=== PATIENT | female | born 1965 | race Caucasian/White ===

== ENCOUNTER 2023-03-10 17:59 | Emergency (ER) | payer BC, SELFPAY ==
[2023-03-10] VITALS (47 sets, daily range): BP systolic 111–144; BP diastolic 54–98; PULSE 51–74; RESP 11–23; TEMP 36.2; O2SAT 93–100
--- NOTE | 2023-03-10 18:10 | NUR.NOTE ---
Nursing Note: Accessed [place] [facility] [place].
[2023-03-10 18:59] LABS: Abs Immature Grans 0.11 10^3/uL (0.0-0.06); Absolute Basophil Count 0.06 10^3/uL (0.0-0.2); Absolute Eosinophil Count 0.17 10^3/uL (0.0-0.7); Absolute Lymphocyte Count 4.35 10^3/uL (1.2-3.4); Absolute Monocyte Count 0.62 10^3/uL (0.1-0.8); Basophils % 0.5; Eosinophils % 1.3; HCT 39.5 % (36.0-46.0); Immature Grans % 0.9; Lymphocytes % 34.2; MCH 28.8 pg (27.0-33.0); MCHC 32.9 % (32.0-36.0); MCV 87 fL (80-95); MPV 10.8 fL (8.0-11.0); Monocytes % 4.9; Neutrophils % 58.2; Platelet Count 144 10^3/uL (130-400); RBC 4.52 10^6/uL (3.93-5.22); RDW 13.4 % (11.7-14.6); RDW-SD 42.8 fL; WBC 12.72 10^3/uL (4.4-10.8)
--- NOTE | 2023-03-10 19:00 | W.ED.GENAD ---
Discharge Plan Disposition Patient Disposition: Transfer-Acute Inpatient Care Specific Acute Inpt Facility: [facility] Discharge Details Clinical Impression: Vertigo Primary Care Provider: Good Sorensen ED Provider: Jose Luis Toney Home Meds and New Rx's Prescriptions: No Action No Known Home Meds atorvastatin 40 mg Tablet 40 mg PO DAILY acetaminophen 325 mg Tablet 325 mg PO Q6H PRN albuterol 90 mcg/actuation Aerosol 180 mcg INHALATION Q4H PRN lorazepam 1 mg Tablet 1 mg PO PRN PRN epinephrine [Epi E-Z Pen] 0.3 mg/0.3 mL Auto-Injector 0.3 ml IM PRN PRN (Reason: Allergic Reaction) ibuprofen 600 mg Tablet 600 mg PO Q6H fluticasone propionate [Flovent HFA] 110 mcg/actuation Hfa Aerosol Inhaler 1 puff INHALATION PRN PRN semaglutide (weight loss) 0.5 mg/0.5 mL Pen Injector 0.5 mg SUBCUT QWEEK Medical Decision Making 1899 --57-year-old female here with sudden onset, severe vertigo that is worse with movement. Patient not tolerating exam and having significant vomiting. No RIOS. No neck pain. No diplopia, dysphagia, dysarthria, paresthesia or weakness. Nursing established US guided IV access and will give IV fluid and ondansetron IV. Plan to treat with meclizine. 1942 -- Patient reassessed and still with nausea. Able to tolerate exam - patient with horizontal nystagmus, fast phase away from right. Rotary nystagmus present on vertical gaze. Skew test normal. Head impulse not well tolerated. Given persistent symtpoms and inability to tolerate complete hints exam with persistent nausea, consider central etiology. Will CT head and obtain CTA brain and neck. --CT of the head was interpreted by radiology: No acute intracranial abnormality. Mild to moderate white matter disease. Nonspecific subcortical areas of low-density and white matter are detected. These may be seen with a variety of infectious, inflammatory or vascular etiologies. These may also be seen in the setting of migraine headaches. Less likely is microvascular ischemic changes in this age group. CTA of the head was interpreted by radiology: No large vessel stenosis or occlusion. Mild to moderate nonspecific white matter disease. CTA of the neck was interpreted by radiology: No stenosis or occlusion. Patient reassessed and continues to have symptoms. Miquel maneuver was performed and patient did note some improvement with ability to open her eyes without significant vertigo. 2234 --patient reassessed and notes improvement after Miquel maneuver. I am concerned that she vomited initial dose of Antivert I will repeat dosing and plan to reassess. 2299 --patient reassessed and attempted to ambulate and having ataxic gait. Patient would benefit from MRI tonight to definitively rule out central etiology. We will give aspirin 325mg. 2314 -- I called [facility], spoke with transfer center staff, discussed ED presentation and my concerns and I requested emergent transfer ED to ED to evaluate for posterior circulation CVA. [facility] transfer center staff note unable to accommodate transfer due to capacity and will refuse to accept patient. I then immediately called [facility] transfer center to request transfer. Awaiting callback from [facility]. 2329 -- I spoke with Dr. Berry, discussed ED presentation and course, she will accept patient in transfer. Lab Data Lab results reviewed: Yes I reviewed the patient's lab results. Labs: Laboratory Tests Range/Units 03/10/23 03/10/23 03/10/23 18:48 18:48 18:48 WBC (4.4-10.8) 10^3/uL 12.72 H RBC (3.93-5.22) 10^6/uL 4.52 Hgb (11.2-15.7) g/dL 13.0 Hct (36.0-46.0) % 39.5 MCV (80-95) fL 87 MCH (27.0-33.0) pg 28.8 MCHC (32.0-36.0) % 32.9 RDW (11.7-14.6) % 13.4 Plt Count (130-400) 10^3/uL 144 MPV (8.0-11.0) fL 10.8 Immature Gran % 0.9 Neutrophils % 58.2 Lymphocytes % 34.2 Monocytes % 4.9 Eosinophils % 1.3 Basophils % 0.5 Nucleated RBC % (0.0-0.3) % 0.0 Absolute Neutrophils (1.2-6.7) 10^3/uL 7.40 H Absolute Lymphocytes (1.2-3.4) 10^3/uL 4.35 H Absolute Monocytes (0.1-0.8) 10^3/uL 0.62 Absolute Eosinophils (0.0-0.7) 10^3/uL 0.17 Absolute Basophils (0.0-0.2) 10^3/uL 0.06 PT (9.3-11.0) sec 9.4 INR (0.9-1.1) 0.9 APTT (21.5-31.9) sec 23.3 Sodium (136-145) mmol/L 139 Potassium (3.5-5.1) mmol/L 3.6 Chloride (98-107) mmol/L 100 Carbon Dioxide (21.0-32.0) mmol/L 27.3 Anion Gap (3-11) mmol/L 11.7 H BUN (7-18) mg/dL 26 H Creatinine (0.55-1.02) mg/dL 0.9 Est GFR (CKD-EPI 2020) (mL/min/1.73m2) 75.03 Glucose (74-106) mg/dL 144 H Calcium (8.5-10.1) mg/dL 8.7 Magnesium (1.8-2.4) mg/dL 1.9 Total Bilirubin (0.2-1.0) mg/dL 0.2 AST (15-37) U/L 13 L ALT (14-59) U/L 26 Alkaline Phosphatase (46-116) U/L 78 Troponin I (<or=60) ng/L < 50 Total Protein (6.4-8.2) g/dL 8.0 Albumin (3.4-5.0) g/dL 3.8 HPI General Mode of arrival: ambulatory. Date/Time Provider Initiated Documentation: 03/10/23 18:10. Limitations to Documentation: no limitations. Information obtained by: patient. HPI Narrative: 57-year-old female presents with severe dizziness. Patient notes sudden onset of severe dizziness that is worse with any movement. She states feels like the room is spinning. Symptoms started around 5:30 PM. She has associated nausea and vomiting. Prior to onset, patient was feeling normal. She denies associated chest pain, shortness of breath, abdominal pain, headache, numbness or tingling. No visual changes. Related Data Home Medications Medication Instructions Recorded Confirmed Unknown [No Known Home Meds] 03/10/23 03/10/23 acetaminophen 325 mg tablet 325 mg PO Q6H PRN 03/10/23 03/10/23 albuterol 90 mcg/actuation aerosol 180 mcg inhalation Q4H PRN 03/10/23 03/10/23 inhaler atorvastatin 40 mg tablet 40 mg PO DAILY 03/10/23 03/10/23 epinephrine 0.3 mg/0.3 mL 0.3 ml IM PRN PRN Allergic Reaction 03/10/23 03/10/23 injection, auto-injector fluticasone propionate 110 1 puff inhalation PRN PRN 03/10/23 03/10/23 mcg/actuation HFA aerosol inhaler (Flovent HFA) ibuprofen 600 mg tablet 600 mg PO Q6H 03/10/23 03/10/23 lorazepam 1 mg tablet 1 mg PO PRN PRN 03/10/23 03/10/23 semaglutide (weight loss) 0.5 0.5 mg subcut QWEEK 03/10/23 03/10/23 mg/0.5 mL subcutaneous pen injector Allergies Allergy/AdvReac Type Severity Reaction Status Date / Time Penicillins Allergy Hives Unverified 03/10/23 18:09 Sulfa (Sulfonamide Allergy Hives Unverified 03/10/23 18:09 Antibiotics) General Stated Complaint: Dizzy/Sync ARVIND: 3 Review of Systems All systems reviewed & are unremarkable except as noted in HPI and below Constitutional Constitutional: Denies fever(s) Neurologic Neurologic: Reports as per HPI PFSH All Active Problems (Updated 03/10/23 @ 23:16 by Jose Luis Toney MD) Vertigo (Acute) Social History Smoking/Tobacco Use Status: Never Smoking risk assessment performed?: Yes Alcohol Intake: current Alcohol Intake frequency: holidays/special occasions only Drug use: Never Substance use type: does not use Do you feel safe at home: Yes Do you feel safe in your relationship?: Yes Additional Social history: boyfriend at bedside Exam Const General: uncomfortable Nutritional Appearance: well nourished Orientation: alert and awake [facility] Head: normocephalic and atraumatic Mouth: moist mucous membranes Eyes Conjunctivae: normal conjunctivae Sclera: normal sclerae Pupils: PERRL EOM: nystagmus Other: No ptosis Neck Neck: trachea midline and supple Resp Auscultation: clear to auscultation bilaterally, no rales, no rhonchi and no wheezes Cardio Rate: regular rate and not tachycardic Rhythm: regular rhythm GI Palpation: soft, not firm, no guarding, no masses, not rigid and nontender Skin General skin exam: no rashes or lesions noted Neuro General: patient alert, patient awake and tone normal Cranial Nerves: nystagmus Cognition: normal cognition Speech: speech normal Other: patient not tolerating exam Extrem General: no edema Psych Appearance: grossly normal Mental Status: mental status grossly normal Speech and Movement: speech and movement normal Course Vital Signs Vital signs: Vital Signs Temperature 36.2 C L 03/10/23 18:02 Pulse 60 03/10/23 18:02 Respiratory Rate 16 03/10/23 18:02 Blood Pressure 125/54 L 03/10/23 18:02 Pulse Oximetry 95 03/10/23 18:02 Temperature 36.2 C L 03/10/23 18:02 Temperature Source Skin 03/10/23 18:02 Pulse 60 03/10/23 18:02 Respiratory Rate 16 03/10/23 18:12 Respiratory Effort Normal, Non-Labored 03/10/23 18:17 Respiratory Depth Normal 03/10/23 18:12 Respiratory Pattern Normal 03/10/23 18:12 Blood Pressure 125/54 L 03/10/23 18:02 Blood Pressure Position Supine 03/10/23 18:02 Pulse Oximetry 95 03/10/23 18:02 Oxygen Delivery Method Room Air 03/10/23 18:02 Oxygen Flow Rate 0 03/10/23 18:02 Pain Level 0 03/10/23 18:02 PAWSS Have you Been Recently Intoxicated or Drunk Within the Last 30 days?: No Have you Ever Experienced Previous Episodes of Alcohol Withdrawal?: No Have you ever Experienced Withdrawal Seizures?: No Have you ever Experienced Delirium Tremens(DT)s?: No Have you ever undergone Alcohol Rehabilitation Treatment (i.e, inpt ot outpatient treatment programs)?: No Have you ever Experienced Blackouts?: No Have you ever Combined Alcohol with other Downers within the last 90 days?: No Have you ever Combined Alcohol with any other Substance of Abuse during the last 90 days?: No Positive Blood Alcohol level on Presentation? [PCS.BAL]: No Evidence of Increased Autonomic Activity (i.e. HR>120, tremor, sweating, agitation, nausea)?: No Result: 0
[2023-03-10] MEDS: Lactated Ringers 500 ML IV (19:03)
[2023-03-10] MEDS: Ondansetron 4 MG/2 ML VIAL IVP (19:03)
[2023-03-10 19:12] LABS: INR 0.9 (0.9-1.1); PTT Activated 23.3 sec (21.5-31.9); Prothrombin Time 9.4 sec (9.3-11.0)
[2023-03-10] MEDS: Meclizine 25 MG TAB PO ×2 (19:13→22:30)
[2023-03-10 19:21] LABS: ALT 26 U/L (14-59); AST 13 U/L (15-37); Albumin 3.8 g/dL (3.4-5.0); Alkaline Phosphatase 78 U/L (46-116); Anion Gap 11.7 mmol/L (3-11); BUN 26 mg/dL (7-18); Bilirubin, Total 0.2 mg/dL (0.2-1.0); CO2 27.3 mmol/L (21.0-32.0); CREATININE 0.9 mg/dL (0.55-1.02); Calcium 8.7 mg/dL (8.5-10.1); Chloride 100 mmol/L (98-107); Estimated GFR 75.03 (mL/min/1.73m2); Glucose 144 mg/dL (74-106); Magnesium 1.9 mg/dL (1.8-2.4); Potassium 3.6 mmol/L (3.5-5.1); Sodium 139 mmol/L (136-145); Troponin I < 50 ng/L (<or=60)
--- NOTE | 2023-03-10 19:30 | DI.CT_ITS ---
Exam(s) CT BRAIN NECK CTA EXAM: CT BRAIN NECK CTA CLINICAL HISTORY: severe vertigo, consider central. TECHNIQUE: Imaging Protocol: Axial CT angiography was performed with multi-slice acquisition and mu lti-planar and/or 3D reconstructions. CONTRAST MATERIAL: Intravenous: Omnipaque 350 Contrast volume:structured data in ml COMPARISON: No exams were available for comparison FINDINGS: CTA Neck W: Aortic arch anatomy: The aortic arch anatomy is conventional and there is no significant stenosis at the origin of the great vessels off of the aortic arch. No intimal flap evident. Anterior circulation: Both common carotid arteries ascend with normal luminal diameters. At the level the carotid bulbs and proximal internal carotid arteries there is no significant plaque. No hemodynamically significant stenosis evident. Internal carotid arteries are demonstrated to be nicely patent in the upper neck and within the skull base-carotid canals. Posterior circulation: Both vertebral arteries originate in conventional fashion off of the subclavian arteries. The domina nt left vertebral artery proximal aspect tortuous but without obvious stenosis. The right vertebral artery is a very thin vessel throughout its length. There is no obvious stenosis nor dissection in v essels. The thin right vertebral artery does not contribute to the formation of the basilar artery. The dominant left vertebral artery is the only contributor to the formation of the basilar artery at the skull base. CTA Brain W: Anterior circulation: Both internal carotid arteries are patent in the skull base-carotid canals as well as within the cave rnous sinuses. The supraclinoid aspects of the ICAs are patent. The left A1 segment is dominant and main contributo r to flow in the anterior cerebral arteries. There is no aneurysm at the level of the anterior commu nicating artery. Both middle cerebral arteries are patent with no evidence of significant stenosis nor intraluminal th rombus. There also no aneurysms of these vessels. Posterior circulation: The basilar artery ascends as a somewhat thin vessel in the midline. Distally it gives off patent bi lateral superior cerebellar arteries. Above this level the basilar artery terminates as patent left posterior cerebral artery. There is a posterior communicating artery on the right side of the [id number] feeding the right posterior cerebral artery. There is no evidence of aneurysm at the tip of the basilar artery nor elsewhere in the [id number] is. CT BRAIN: There is no evidence of intracranial hemorrhage, mass effect, or shift of midline structures. There are no extra-axial fluid collections. Ventricles are not enlarged or shifted. There are no ring enh ancing lesions in the brain and no abnormal meningeal enhancement. There is prominent bilateral periventricular hypodensity consistent with chronic small vessel disease . IMPRESSION: 1. Patent carotid arteries in the neck. No hemodynamically significant stenosis. 2. The left vertebral artery is dominant. The right vertebral artery is a thin vessel throughout it s course in the neck and does not contribute to the formation of the basilar artery. 3. Patent intracranial arteries. Left A1 segment is dominant and supplies both anterior cerebral art eries. 4. There is a posterior communicating artery on the right side of the [id number] noted. 5. There is abundant bilateral periventricular hypodensity consistent with chronic small vessel disea se. Can be further studied MRI/diffusion imaging if clinically indicated. There are no ring enhanci ng lesions in the brain. RADIATION DOSE DELIVERED: 2,627.18mGy.cm Total DLP DATA REPOSITORY: All CT scans at this facility are submitted to the National Radiology Data Registry (NRDR) Dose Index Registry (DIR) with the [employer] (ACR). RADIATION OPTIMIZATION: All CT scans at this facility use at least one of these dose optimization te chniques: automated exposure control; mA and/or kV adjustment per patient size (includes targeted exa ms where dose is matched to clinical indication); or iterative reconstruction.
[2023-03-10] MEDS: Normal Saline - Diluent 50 ML VIAL IJ (19:59)
[2023-03-10] MEDS: Normal Saline Flush 10 ML SYR IVP (19:59)
[2023-03-10] MEDS: Omnipaque 350 MG/ML 100 ML BTL IJ (20:00)
--- NOTE | 2023-03-10 20:53 | DI.VRAD_ITS ---
PROCEDURE INFORMATION: Exam: CT Head Without Contrast Exam date and time: 03/10/2023 8:16 PM Age: 57 years old Clinical indication: Patient HX: Severe vertigo, consider central TECHNIQUE: Imaging protocol: Computed tomography of the head without contrast. 3D rendering (Not supervised by radiologist): MIP and/or 3D reconstructed images were created by the technologist. COMPARISON: No relevant prior studies available. FINDINGS: Brain: No hemorrhage. [id number] white matter disease. No mass effect. Cerebral ventricles: No ventriculomegaly. Paranasal sinuses: Visualized sinuses are unremarkable. No fluid levels. Mastoid air cells: Visualized mastoid air cells are well aerated. Bones/joints: Unremarkable. No acute fracture. Soft tissues: Unremarkable. IMPRESSION: No acute intracranial abnormality. Nonspecific subcortical areas of low density in the white matter are detected. These may be seen with a variety of infectious, inflammatory or vascular etiologies. These may also be seen in the setting of migraine headaches. Less likely is microvascular ischemic changes in this age group. Dictated and Authenticated by: Eric Gomez MD. Ordering:NUVIA Amaya MD
[2023-03-10] MEDS: Aspirin E.C. 325 MG TABEC PO (23:38)
== END 2023-03-11 00:11 | disposition short-term general hospital (02) ==
PROVIDERS: Emergency Provider Student in an Organized Health Care Education/Training Program; PCP Internal Medicine
DX: R42 Dizziness and giddiness (principal); R11.10 Vomiting, unspecified
CPT/HCPCS: 70496; 70498; 80053; 96361; 96374; 99285; 83735; 84484; 85025; 85610; 85730; J2405; J3490